=== PATIENT | female | born 1945 | race Caucasian/White ===

== ENCOUNTER 2018-04-22 08:34 | Emergency (ER) | payer MEDICARE, OTHER ==
[2018-04-22] MEDS ORDERED: morphine 4 MG/ML VIAL IV (08:43)
[2018-04-22 08:59] LABS: ADD MAN DIFF? NO
[2018-04-22 09:01] LABS: WHITE BLOOD COUNT 4.1 10^3/ul (4.8-10.8)
[2018-04-22 09:01] LABS: ABNORMAL IP MESSAGE 1; BASOPHILS % 0.2 % (0.0-2.0); EOSINOPHILS % 0.5 % (0.0-7.0); HEMOGLOBIN 14.4 g/dl (12.0-16.0); LYMPHOCYTES # 0.5 10^3/ul (0.8-2.9); LYMPHOCYTES % 11.7 % (15.0-51.0); MEAN CORPUSCULAR HEMOGLOBIN 31.6 pg (29.0-33.0); MEAN CORPUSCULAR HGB CONC 33.5 g/dl (32.0-37.0); MEAN CORPUSCULAR VOLUME 94.5 fl (82.0-101.0); MEAN PLATELET VOLUME 10.1 fl (7.4-10.4); MONOCYTE # 0.5 10^3/ul (0.3-0.9); MONOCYTES % 11.5 % (0.0-11.0); NEUTROPHIL # 3.1 10^3/ul (1.6-7.5); NEUTROPHILS % 75.9 % (39.0-77.0); PLATELET COUNT 62 10^3/UL (140-415); RED BLOOD COUNT 4.55 10^6/ul (4.20-5.40)
[2018-04-22 09:11] LABS: POSITIVE DIFF @See below
[2018-04-22] MEDS: LORAZEPAM 2 MG INJ IV (09:12)
[2018-04-22] MEDS: HYDROmorphONE 0.5 MG/0.5 ML SYG IV (09:12)
[2018-04-22] MEDS: ONDANSETRON 4 MG INJ IV (09:12)
[2018-04-22 09:35] LABS: ANION GAP 8 (5-13); BLOOD UREA NITROGEN 13 mg/dl (7-20); CALCIUM 9.9 mg/dl (8.4-10.2); CARBON DIOXIDE 28 mmol/L (21-31); CHLORIDE 106 mmol/L (97-110); CREATININE 0.74 mg/dl (0.44-1.00); GLUCOSE 123 mg/dl (70-220); POTASSIUM 3.9 mmol/L (3.5-5.1); SODIUM 142 mmol/L (135-144)
[2018-04-22 09:47] LABS: TROPONIN-I < 0.012 ng/ml (0.000-0.120)
== END 2018-04-22 10:46 | disposition home or self-care (01) ==
LOC: E/R 08:34
DX: R51 Headache (principal); R07.89 Other chest pain; D69.6 Thrombocytopenia, unspecified; I10 Essential (primary) hypertension; Z87.19 Personal history of other diseases of the digestive system; Z79.01 Long term (current) use of anticoagulants
CPT/HCPCS: 36415; 70450; 71045; 80048; 84484; 85025; 93005; 96374; 96375; 99285-25